=== PATIENT | male | born 1945 | race Caucasian/White ===

== ENCOUNTER 2020-01-18 12:54 | Emergency (ER) | payer OTHER ==
--- NOTE | 2020-01-18 13:57 | ER ---
Nurse's Notes [facility] Name: Jimmy Power Age: 74 yrs Sex: Male : 1945 Arrival Date: 01/18/2020 Time: 12:56 Bed 18 Private MD: Melanie Day F Diagnosis: Sciatica, right side Presentation: 01/17 13:16 Chief complaint: Patient states: "I think I might have pinched a nerve last Thursday jd3 and sending pains down my leg. it happened when i was lifting something I probably should not have.". Coronavirus screen: At this time, the client does not indicate any symptoms associated with coronavirus-19. Ebola Screen: Patient negative for fever greater than or equal to 101.5 degrees Fahrenheit, and additional compatible Ebola Virus Disease symptoms. Initial Sepsis Screen: Does the patient meet any 2 criteria? No. Patient's initial sepsis screen is negative. Does the patient have a suspected source of infection? No. Patient's initial sepsis screen is negative. Risk Assessment: Do you want to hurt yourself or someone else? Patient reports no desire to harm self or others. Onset of symptoms was January 14, 2020. 13:16 Method Of Arrival: Ambulatory jd3 13:16 Acuity: DAMARIS 4 jd3 Triage Assessment: 13:48 General: Appears distressed, uncomfortable, Behavior is cooperative, appropriate for bp age, anxious. Pain: Complains of pain in left leg. EENT: No deficits noted. Neuro: No deficits noted. Cardiovascular: No deficits noted. Respiratory: No deficits noted. GI: No signs and/or symptoms were reported involving the gastrointestinal system. : No signs and/or symptoms were reported regarding the genitourinary system. Derm: No deficits noted. Musculoskeletal: Circulation, motion, and sensation intact. Range of motion: intact in all extremities. Historical: - Allergies: 13:19 No Known Allergies; jd3 - Home Meds: 13:19 thyroid med [Active]; BP med [Active]; cholesterol med [Active]; jd3 - PMHx: 13:19 Hypertension; High Cholesterol; jd3 - PSHx: 13:19 None; jd3 - Immunization history:: Adult Immunizations up to date. - Social history:: Smoking status: Patient denies any tobacco usage or history of. Screenin:49 Abuse screen: Denies threats or abuse. Denies injuries from another. Nutritional bp screening: No deficits noted. Tuberculosis screening: No symptoms or risk factors identified. Fall Risk None identified. Assessment: 13:49 General: SEE TRIAGE NOTE. Neuro: Oriented to Appropriate for age Gait is steady. bp 13:59 Reassessment: PT D/C HOME AMBULATORY, DX WITH SCIATICA. bp 14:24 Reassessment: PT D/C HOME AMBULATORY, DX WITH SCIATICA. bp Vital Signs: 13:19 BP 125 / 78; Pulse 73; Resp 17 S; Temp 98.5(TE); Pulse Ox 100% on R/A; Weight 92.99 kg jd3 (R); Height 5 ft. 10 in. (177.80 cm) (R); Pain 8/10; 14:24 BP 121 / 75; Pulse 75; Resp 16; Temp 98; Pulse Ox 99% ; bp 13:19 Body Mass Index 29.42 (92.99 kg, 177.80 cm) jd3 ED Course: 12:56 Patient arrived in ED. ag5 12:56 Melanie Day MD is Private Physician. ag5 13:18 Triage completed. jd3 13:20 Arm band placed on. jd3 13:46 [facility]. kb 13:46 Teodoro Burgess MD is Attending Physician. kb 13:46 Danie Valdes, JONY is Primary Nurse. bp 13:49 Patient has correct armband on for positive identification. Bed in low position. Call bp light in reach. Side rails up X2. 13:59 No provider procedures requiring assistance completed. Patient did not have IV access bp during this emergency room visit. Administered Medications: 13:58 Drug: predniSONE 40 mg Route: PO; bp 13:58 Follow up: Response: Medication administered at discharge. bp 14:28 Follow up: Response: Medication administered at discharge. bp Outcome: 13:57 Discharge ordered by . kb 13:59 Discharged to home ambulatory. bp 13:59 Condition: stable 13:59 Discharge instructions given to patient, Instructed on discharge instructions, follow up and referral plans. medication usage, Demonstrated understanding of instructions, follow-up care, medications, Prescriptions given X 2. 14:31 Patient left the ED. bp Signatures: Arin Garza FNP-C [employer]-Ckb Neto You, RN RN jd3 Danie Valdes RN RN Marbella Daniel ag5 Corrections: (The following items were deleted from the chart) 13:21 13:19 Pulse 73bpm; Resp 17bpm; Spontaneous; Pulse Ox 100% RA; Temp 98.5F Temporal; jd3 92.99 kg Reported; Height 5 ft. 10 in. Reported; BMI: 29.4; Pain 8/10; jd3
--- NOTE | 2020-01-18 13:57 | EDPHYS ---
Physician Documentation [facility] Name: Jimmy Power Age: 74 yrs Sex: Male : 1945 Arrival Date: 01/18/2020 Time: 12:56 Bed 18 Private MD: Melanie Day F ED Physician Teodoro Burgess HPI: 01/17 13:55 This 74 yrs old Male presents to ER via Ambulatory with complaints of Back kb Pain. 13:55 The patient presents with pain that is acute. The symptoms are located in the right low kb back. Onset: The symptoms/episode began/occurred 6 day(s) ago. The pain radiates. Associated signs and symptoms: The patient has no apparent associated signs or symptoms. The problem was sustained when lifting. Modifying factors: The patient symptoms are alleviated by nothing, the patient symptoms are aggravated by any movement. Severity of symptoms: At their worst the symptoms were moderate, in the emergency department the symptoms are unchanged. The patient has experienced similar episodes in the past, a few times. The patient has not recently seen a physician. Pt reports he lifted something he shouldn't have on Thursday and since then has had pain to right low back/upper buttock that radiates down right leg. States he has had sciatica before and that is what it feels like. Has been taking ibuprofen without relief.. Historical: - Allergies: 13:19 No Known Allergies; jd3 - Home Meds: 13:19 thyroid med [Active]; BP med [Active]; cholesterol med [Active]; jd3 - PMHx: 13:19 Hypertension; High Cholesterol; jd3 - PSHx: 13:19 None; jd3 - Immunization history:: Adult Immunizations up to date. - Social history:: Smoking status: Patient denies any tobacco usage or history of. ROS: 13:53 Constitutional: Negative for fever, chills, and weight loss, Cardiovascular: Negative kb for chest pain, palpitations, and edema, Respiratory: Negative for shortness of breath, cough, wheezing, and pleuritic chest pain, Abdomen/GI: Negative for abdominal pain, nausea, vomiting, diarrhea, and constipation, MS/Extremity: Negative for injury and deformity, Skin: Negative for injury, rash, and discoloration, Neuro: Negative for headache, weakness, numbness, tingling, and seizure. 13:53 Back: Positive for pain at rest, pain with movement, radiated pain, of the right low back. Exam: 13:53 Constitutional: This is a well developed, well nourished patient who is awake, alert, kb and in no acute distress. Head/Face: Normocephalic, atraumatic. Chest/axilla: Normal chest wall appearance and motion. Nontender with no deformity. No lesions are appreciated. Cardiovascular: Regular rate and rhythm with a normal S1 and S2. No gallops, murmurs, or rubs. Normal PMI, no JVD. No pulse deficits. Respiratory: Lungs have equal breath sounds bilaterally, clear to auscultation and percussion. No rales, rhonchi or wheezes noted. No increased work of breathing, no retractions or nasal flaring. Abdomen/GI: Soft, non-tender, with normal bowel sounds. No distension or tympany. No guarding or rebound. No evidence of tenderness throughout. Skin: Warm, dry with normal turgor. Normal color with no rashes, no lesions, and no evidence of cellulitis. MS/ Extremity: Pulses equal, no cyanosis. Neurovascular intact. Full, normal range of motion. Neuro: Awake and alert, GCS 15, oriented to person, place, time, and situation. Cranial nerves II-XII grossly intact. Motor strength 5/5 in all extremities. Sensory grossly intact. Cerebellar exam normal. Normal gait. 13:53 Back: pain, that is moderate, of the right low back, ROM is normal, normal spinal alignment noted. Vital Signs: 13:19 BP 125 / 78; Pulse 73; Resp 17 S; Temp 98.5(TE); Pulse Ox 100% on R/A; Weight 92.99 kg jd3 (R); Height 5 ft. 10 in. (177.80 cm) (R); Pain 8/10; 14:24 BP 121 / 75; Pulse 75; Resp 16; Temp 98; Pulse Ox 99% ; bp 13:19 Body Mass Index 29.42 (92.99 kg, 177.80 cm) jd3 MDM: 13:46 Patient medically screened. kb 13:55 Data reviewed: vital signs, nurses notes. Data interpreted: Pulse oximetry: on room air kb is 100 %. Interpretation: normal. Counseling: I had a detailed discussion with the patient and/or guardian regarding: the historical points, exam findings, and any diagnostic results supporting the discharge/admit diagnosis, the need for outpatient follow up, a family practitioner, to return to the emergency department if symptoms worsen or persist or if there are any questions or concerns that arise at home. Administered Medications: 13:58 Drug: predniSONE 40 mg Route: PO; bp 13:58 Follow up: Response: Medication administered at discharge. bp 14:28 Follow up: Response: Medication administered at discharge. bp Disposition: 16:31 Co-signature as Attending Physician, Teodoro Burgess MD. rn Disposition: 01/18/20 13:57 Discharged to Home. Impression: Sciatica, right side. - Condition is Stable. - Discharge Instructions: Sciatica, [id number]. - Prescriptions for Prednisone 20 mg Oral Tablet - take 1 tablet by ORAL route once daily for 5 days; 5 tablet. Skelaxin 800 mg Oral Tablet - take 1 tablet by ORAL route every 8 hours As needed; 21 tablet. - Medication Reconciliation Form, Thank You Letter, Antibiotic Education, Prescription Opioid Use form. - Follow up: Emergency Department; When: As needed; Reason: Worsening of condition. Follow up: Private Physician; When: 2 - 3 days; Reason: Recheck today's complaints, Continuance of care, Re-evaluation by your physician. Signatures: Arin Garza, DISPOSAL MAN-C DISPOSAL MAN-Ckb Teodoro Burgess MD MD rn Davies, Jonathon, RN RN jd3 Peltier, Brian, RN RN bp Corrections: (The following items were deleted from the chart) 14:31 13:57 01/18/2020 13:57 Discharged to Home. Impression: Sciatica, right side. Condition bp is Stable. Forms are Medication Reconciliation Form, Thank You Letter, Antibiotic Education, Prescription Opioid Use. Follow up: Emergency Department; When: As needed; Reason: Worsening of condition. Follow up: Private Physician; When: 2 - 3 days; Reason: Recheck today's complaints, Continuance of care, Re-evaluation by your physician. kb
[2020-01-18] MEDS ORDERED: predniSONE 20 MG TAB ONE (14:07)
[2020-01-18 15:16] VITALS: BP 121/75; TEMP 98; O2SAT 99
== END 2020-01-18 14:31 | disposition home or self-care (01) ==
LOC: ER 12:54
DX: M54.31 Sciatica, right side (principal); I10 Essential (primary) hypertension; E78.00 Pure hypercholesterolemia, unspecified
CPT/HCPCS: 99283; J7512